=== PATIENT | female | born 1945 | race Caucasian/White ===

== ENCOUNTER 2018-02-25 05:40 | Inpatient (IN) | payer OTHER ==
--- NOTE | 2018-02-17 15:54 | ASMTCMCOM ---
CM Note CM Note Notes: At MD office request this CM talked to pt about d/c planning. Pt is scheduled for LESLIE 02/25/18 and has no friends/family support after surgery. Pt reports her one friend who will drive her to [facility] will leave the country the next day after pt surgery. Pt states she would like to avoid SNF and would be amenable to "more time" in the hospital in order to d/c home. Pt states she is not interested in an email providing SNF and HHC choice lists, states she would not know how to pick a SNF or HHC. Pt is encouraged to put any supports in place that come up and research HHC/SNFs. Pt informed CM will be here for d/c planning based on safety and what she qualifies for based on therapy evals. Date Signed: 02/17/2018 03:47 PM Electronically Signed By:MINA Meeks
[2018-02-25] MEDS ORDERED: FAMOTIDINE 20 MG TAB PO ONE (05:51)
[2018-02-25] MEDS ORDERED: DEXAMETHASONE 4 MG/ML VIAL IVP ONE (05:51)
[2018-02-25] MEDS ORDERED: ACETAMINOPHEN 325 MG TAB PO ONE (05:51)
[2018-02-25] MEDS ORDERED: ceFAZolin 2 GM/DEXTROSE 100 ML IV ONE (05:51)
[2018-02-25] MEDS ORDERED: LR 1,000 ML IV ONE (05:54)
[2018-02-25] MEDS ORDERED: ROPIVACAINE 0.2% 80 MG, EPINEPHrine 0.2 MG, KETOROLAC TROMETHAMINE 30 MG in SYRINGE 0 ML IU ONE (06:00)
[2018-02-25] MEDS ORDERED: TRANEXAMIC ACID 3,000 MG in NS (SYRINGE) 50 ML IRR ONE (06:00)
--- NOTE | 2018-02-25 06:24 | PDHPUP ---
History & Physical Update H&P update statement: This history and physical update is based on an assessment of the patient which was completed after admission or registration (within 24 hours), but prior to the surgery/procedure. H&P update: H&P reviewed & patient examined, no change in patient's condition since H&P completed
[2018-02-25] MEDS ORDERED: DEXAMETHASONE 4 MG/ML VIAL ONE (07:17)
[2018-02-25] MEDS ORDERED: METOCLOPRAMIDE 10 MG/2 ML VIAL ONE (07:17)
[2018-02-25] MEDS ORDERED: fentaNYL 100 MCG/2 ML INJ ONE (07:17)
[2018-02-25] MEDS ORDERED: ROCURONIUM 50 MG/5 ML VIAL ONE (07:17)
[2018-02-25] MEDS ORDERED: ONDANSETRON 4 MG/2 ML VIAL ONE (07:17)
[2018-02-25] MEDS ORDERED: PROPOFOL 200 MG/20 ML VIAL ONE (07:18)
[2018-02-25] MEDS ORDERED: morphINE PF 5 MG/10 ML INJ ONE (07:18)
[2018-02-25] MEDS ORDERED: MIDAZOLAM 2 MG/2 ML VIAL IVP ONE (07:21)
[2018-02-25] MEDS ORDERED: TRANEXAMIC ACID 3,000 MG/50 ML BAG IRR ONE (07:30)
[2018-02-25] MEDS ORDERED: PROPOFOL/EMULSION 500 MG/50 ML BOTTLE IV ONE ×2 (07:51→10:00)
--- NOTE | 2018-02-25 07:58 | PDANEPAE ---
ANE History of Present Illness l hip oa ANE Past Medical History - Cardiovascular History Hx Hypertension: No Hx Arrhythmias: No Hx Chest Pain: No Hx Coronary Artery / Peripheral Vascular Disease: No Hx CHF / Valvular Disease: No Hx Palpitations: No - Pulmonary History Hx COPD: No Hx Asthma/Reactive Airway Disease: Yes Hx Recent Upper Respiratory Infection: No Hx Oxygen in Use at Home: No Hx Sleep Apnea: No Sleep Apnea Screening Result - Last Documented: Negative Pulmonary History Comment: allergen induced asthma - Neurologic History Hx Cerebrovascular Accident: No Hx Seizures: No Hx Dementia: No - Endocrine History Hx Diabetes: No - Renal History Hx Renal Disorders: No - Liver History Hx Hepatic Disorders: No - Neurological & Psychiatric Hx Hx Neurological and Psychiatric Disorders: No - Cancer History Hx Cancer: No - Congenital Disorder History Hx Congenital Disorders: No - GI History Hx Gastrointestinal Disorders: Yes Gastrointestinal History Comment: reflux - Other Health History Other Health History: none - Chronic Pain History Chronic Pain: No - Surgical History Prior Surgeries: last surgery as a child ANE Review of Systems Review of Systems: - Exercise capacity METS (RN): 4 METS ANE Patient History - Allergies Allergies/Adverse Reactions: codeine Allergy (Verified 01/28/18 12:52) Dyspnea - Home Medications Home Medications: Advil 01/28/18 [Last Taken Unknown] - NPO status NPO Since - Liquids (Date): 02/24/18 NPO Since - Liquids (Time): 23:00 NPO Since - Solids (Date): 02/24/18 NPO Since - Solids (Time): 22:30 - Smoking Hx Smoking Status: Former smoker - Family Anes Hx Family Hx Anesthesia Complications: none ANE Labs/Vital Signs - Vital Signs Blood Pressure: 198/99 Heart Rate: 70 Respiratory Rate: 16 O2 Sat (%): 96 Height: 160.02 cm Weight: 83.915 kg ANE Physical Exam - Airway Neck exam: FROM Mallampati Score: Class 1 Mouth exam: normal dental/mouth exam - Pulmonary Pulmonary: no respiratory distress - Cardiovascular Cardiovascular: regular rate and rhythym - ASA Status ASA Status: II ANE Anesthesia Plan Anesthesia Plan: MAC, spinal
[2018-02-25] MEDS ORDERED: ONDANSETRON 4 MG/2 ML VIAL IVP PRN ×2 (08:00→09:29)
[2018-02-25] MEDS ORDERED: MEPERIDINE 25 MG/0.5 ML AMP IVP PRN (08:00)
[2018-02-25] MEDS ORDERED: PHENYLEPHRINE HCL 100 MCG/ML SYR IVP PRN (08:00)
[2018-02-25] MEDS ORDERED: ALBUTEROL 3 ML DEYVIAL IH PRN (08:00)
[2018-02-25] MEDS ORDERED: LR 500 ML IV PRN (08:00)
[2018-02-25] MEDS ORDERED: PROMETHAZINE HCL 25 MG/ML INJ IVP PRN ×2 (08:00→09:29)
[2018-02-25] MEDS ORDERED: LABETALOL HCL 5 MG/ML 20 ML MDV IVP PRN (08:00)
[2018-02-25] MEDS ORDERED: NALOXONE HCL 0.4 MG/ML INJ IVP PRN (08:00)
[2018-02-25] MEDS ORDERED: HYDROCODONE/APAP 5/325 TAB PO PRN (08:00)
[2018-02-25] MEDS ORDERED: fentaNYL 100 MCG/2 ML INJ IVP PRN (08:00)
[2018-02-25] MEDS ORDERED: HYDROmorphONE/DILAUDID 2 MG/ML INJ IVP PRN (08:00)
[2018-02-25] MEDS ORDERED: BUPIVACAINE/DEXTROSE 7.5MG/ML 2 ML SPINAL AMP SP ONE (08:35)
[2018-02-25] MEDS ORDERED: METOCLOPRAMIDE 10 MG/2 ML VIAL IVP PRN (09:29)
[2018-02-25] MEDS ORDERED: POLYETHYLENE GLYCOL 3350 17 GM PKT PO PRN (09:29)
[2018-02-25] MEDS ORDERED: diphenhydrAMINE 25 MG CAP PO PRN (09:29)
[2018-02-25] MEDS ORDERED: ONDANSETRON DISINTEGRATING 4 MG TAB PO PRN (09:29)
[2018-02-25] MEDS ORDERED: MAGNESIUM HYDROXIDE 30 ML UDCUP PO PRN (09:29)
[2018-02-25] MEDS ORDERED: PROMETHAZINE HCL 25 MG SUPPR PR PRN (09:29)
[2018-02-25] MEDS ORDERED: TEMAZEPAM 15 MG CAP PO PRN (09:29)
[2018-02-25] MEDS ORDERED: BISACODYL 10 MG SUPP PR PRN (09:29)
[2018-02-25] MEDS ORDERED: DIPHENOXYLATE/ATROPINE LOMOTIL 1 TAB PO PRN (09:29)
[2018-02-25] MEDS ORDERED: LACTULOSE 20 GM/30 ML UDCUP PO PRN (09:29)
[2018-02-25] MEDS ORDERED: CYCLOBENZAPRINE 10 MG TAB PO PRN (09:29)
--- NOTE | 2018-02-25 09:29 | POSTOPPROG ---
Post Op Note Date of Operation: 02/25/18 Surgeon: Shameka Moura Loss Prevention Guard: alfred EDEN Anesthesiologist: dr. arias Anesthesia: Spinal Pre-op Diagnosis: left hip OA Post-op Diagnosis: same Indication: left hip pain Procedure: L LESLIE ant approach Findings: severe hip OA Inf/Abcess present in the surg proc area at time of surgery?: No EBL: 100-500
[2018-02-25] MEDS ORDERED: LR 1,000 ML IV SCH (09:30)
--- NOTE | 2018-02-25 09:57 | POSTANESTH ---
Post Anesthetic Evaluation Cardiovascular Status: Normal, Stable Respiratory Status: Normal, Stable Level of Consciousness/Mental Status: Can Participate in Eval Pain Control: Adequate, Prn Tx Ordered Nausea/Vomiting Control: Adequate, Prn Tx Ordered Complications Possibly Related to Anesthesia: None Noted
[2018-02-25] MEDS: oxyCODONE IR 5 MG TAB PO PRN ×2 (11:19→15:57)
[2018-02-25] MEDS: ACETAMINOPHEN 325 MG TAB PO SCH ×2 (11:55→17:44)
[2018-02-25] MEDS: hydrALAZINE 10 MG TAB PO PRN ×2 (13:00→21:32)
--- NOTE | 2018-02-25 13:27 | PDMN ---
Medical Necessity Medical necessity: Pt meets INPT criteria per MD as of 02/25/18 and [facility] [place] S-560 Hip Arthroplasty ( Inpt Only surgery).
[2018-02-25] MEDS ORDERED: ALPRAZolam 0.5 MG TAB PO PRN (15:25)
[2018-02-25] MEDS ORDERED: ZOLPIDEM TARTRATE 5 MG TAB PO PRN (15:25)
[2018-02-25] MEDS: GABAPENTIN 300 MG CAP PO SCH ×2 (15:54→21:23)
[2018-02-25] MEDS: ceFAZolin 2 GM/DEXTROSE 100 ML IV SCH (15:58)
[2018-02-25] MEDS ORDERED: traMADol 50 MG TAB PO PRN (17:15)
[2018-02-25] MEDS: ASPIRIN 81 MG CHEWABLE TAB PO SCH (21:23)
[2018-02-25] MEDS: FAMOTIDINE 20 MG TAB PO SCH (21:24)
[2018-02-25] MEDS: SENNOSIDES/DOCUSATE SODIUM TAB PO SCH (21:25)
[2018-02-26] MEDS: ceFAZolin 2 GM/DEXTROSE 100 ML IV SCH (00:37)
[2018-02-26] MEDS: ACETAMINOPHEN 325 MG TAB PO SCH ×4 (00:38→17:37)
[2018-02-26] MEDS: hydrALAZINE 10 MG TAB PO PRN ×2 (05:47→20:44)
--- NOTE | 2018-02-26 08:31 | GOP ---
DATE OF OPERATION: SURGEON: Shae Moura MD SENIOR ADMINISTRATIVE ASSOCIATE: JANET Boyd ANESTHESIA: Spinal. PREOPERATIVE DIAGNOSIS: Left hip osteoarthritis. POSTOPERATIVE DIAGNOSIS: Left hip osteoarthritis. PROCEDURE PERFORMED: Left total hip arthroplasty. FINDINGS: ESTIMATED BLOOD LOSS: 200 cc. INDICATIONS: The patient has progressively worsening arthritis of the hip which has failed medical m anagement. The patient understands the treatment options including continued non-operative care and has selected surgical intervention. The patient has decided to undergo total hip arthroplasty via th e direct anterior approach, understanding the risks of the procedure including, but not limited to, n eurovascular injury, infection, persistent pain, component wear and loosening, deep venous thrombosis , pulmonary embolism, limb length inequality, hip instability (including dislocation), and intra-oper ative fractures. DESCRIPTION OF PROCEDURE: After proper identification of the patient including verification and megha ing the surgical site, the patient was brought to the operating room and placed in the supine positio n. All bony prominences were well padded. Anesthesia was induced without complication and intraveno us prophylactic antibiotics were administered prior to skin incision. The operative leg was placed in the Trumpf Arch table extension and the well leg in a Yellofin leg ho lder. The patient was prepped and draped in the usual sterile fashion. The C-arm was draped for int ra-operative fluoroscopy to check acetabular position, femoral component position including leg lengt h and femoral offset. Attention was then drawn to surgical exposure of the hip. An incision was made with a #10 Bard Jaida r blade starting 3 cm lateral and 3 cm distal to the anterior superior iliac spine measuring 8-10 cm and coursing distally toward the greater trochanter. The skin and subcutaneous tissues were divided sharply down to the fascia mana. The fascia mana was incised in line with the skin incision exposing the underlying tensor fascia mana muscle. The muscle was bluntly elevated from the fascia and the f irst extracapsular Cobra retractor was placed laterally at the junction of the superior femoral neck and greater trochanter. The lateral femoral circumflex vessels were identified, cauterized, and divi ded with the Aquamantys bipolar cautery. The deep investing fascia of the TFL was divided to allow p rohan mobilization of the muscle preventing damage during the retraction. The reflected head of the rectus femoris muscle was elevated off the anterior hip capsule and a medial Cobra retractor was plac ed just proximal to the lesser trochanter. The anterior capsulotomy was made sharply from the superolateral acetabulum to the saddle junction of the superior femoral neck and greater trochanter, then coursing inferomedial towards the lesser troc hanter. The retractors were then placed in the intracapsular position for femoral neck osteotomy. C orresponding to pre-operative templating, the osteotomy was made with the oscillating saw carefully p rotecting the greater trochanter and soft tissues. The femoral head was removed from the acetabulum with a corkscrew and confirmed to be severely arthritic with exposed bone, deformity and osteophytes. Similar findings were confirmed in the acetabulum. The Arch table extension was then placed in 40 degrees external rotation. Attention was then drawn to the acetabular preparation. After placement of the anterior and posterio r Cobra retractors outside the labrum and intracapsular, the circumferential labrum was removed sharp ly. The foveal contents were then removed and hemostasis obtained with cautery. The first reamer selected was sized using the removed femoral head. Reaming began with medialization and then commenced in 2 mm increments at 45 degrees of abduction and 15 degrees of anteversion using fluoroscopic navigation. Reaming ceased 1 mm less than the definitive acetabular component and galina esponded to the pre-operative templating. The final acetabular component was inserted using fluorosc opy to achieve proper orientation yielding excellent purchase and stability in the acetabulum. The f inal acetabular liner was then placed and its seating confirmed. Attention was then turned to the femur. The Arch table extension was placed in extension and adducti on, delivering the osteotomized femoral neck into the wound. A 2-pronged femoral elevator was placed at the calcar and another at the tip of the greater trochanter. The posterolateral capsule was rele ased with cautery allowing mobilization of the femur lateral and anterior for preparation. The exter nal rotators were visualized and preserved. A curette and rongeur were used to open the starting poi nt for broaching. Serial broaching started with the #0 broach and ended with the broach that exhibit ed excellent fit in the proximal femur. A change in pitch during mallet strikes was accompanied by t he inability to advance the broach any further. The trial reduction was performed and fluoroscopic n avigation was utilized to check limb length. Adjustments were made to equalize limb length according ly. After the final trials were accepted they were removed and the wound was copiously lavaged. The femo ral component was seated to the same depth as the final broach and the femoral head was impacted onto the clean trunnion. The hip was then reduced for the final time and once more fluoroscopy was used to check that limb length equality was achieved. The wound was irrigated and closed in layers, the fascia mana with 2-0 Quill, the subcutaneous tissue with 2-0 Quill, and the skin with Dermabond. Sterile dressings were applied. Final sharps and spon ge counts were accurate. The patient was then transferred to a hospital bed and brought to the [facility] hospital room in stable condition. IMPLANTS: Accolade II size 4, 127 acetabular component, 52 mm Trident, liner is a Trident X3 36 mm. Head is a Biolox Delta 36 mm +0. /[id number]/MODL
[2018-02-26] MEDS: FAMOTIDINE 20 MG TAB PO SCH ×2 (08:36→20:27)
[2018-02-26] MEDS: ASPIRIN 81 MG CHEWABLE TAB PO SCH ×2 (08:36→20:26)
[2018-02-26] MEDS: SENNOSIDES/DOCUSATE SODIUM TAB PO SCH ×2 (08:36→20:27)
[2018-02-26] MEDS ORDERED: VENLAFAXINE XR 150 MG CAP PO SCH (09:00)
[2018-02-26] MEDS ORDERED: VENLAFAXINE XR 75 MG CAP PO SCH (09:00)
--- NOTE | 2018-02-26 10:16 | SOAPPROG ---
SOAP Progress Note Assessment/Plan: Assessment: Patient is doing well POD 1 s/p L LESLIE pain is well controlled VTE ppx: recommend aspirin 81 mg BID for 4 weeks D/c planning: patient should continue to work with OT and PT for mobility and safety concerns. Appreciate case management assistance in coordinating postoperative care Plan: 02/26/18 10:14 Subjective: patient is doing ok, denies SOB, chest pain and n/V. has had some lightheadedness and difficulty working with PT. Objective: Vital Signs Temp Pulse Resp BP Pulse Ox 36.6 C 72 16 130/62 H 93 02/26/18 07:29 02/26/18 07:29 02/26/18 07:29 02/26/18 07:29 02/26/18 07:29 Laboratory Results 02/26/18 04:52 02/25/18 02/26/18 02/27/18 05:59 05:59 05:59 Intake Total 1760 Output Total 800 250 Balance 960 -250 LLE: incision dressing is clean and dry, NVI, +pf/df ICD10 Worksheet Patient Problems: Problems Problem Status Onset Primary localized osteoarthritis of left hip Acute
[2018-02-27] MEDS: ACETAMINOPHEN 325 MG TAB PO SCH ×4 (01:04→18:24)
[2018-02-27] MEDS: FAMOTIDINE 20 MG TAB PO SCH ×2 (09:15→20:17)
[2018-02-27] MEDS: ASPIRIN 81 MG CHEWABLE TAB PO SCH ×2 (09:15→20:17)
[2018-02-27] MEDS: SENNOSIDES/DOCUSATE SODIUM TAB PO SCH ×2 (09:17→20:17)
--- NOTE | 2018-02-27 11:50 | SOAPPROG ---
SOAP Progress Note Assessment/Plan: Assessment: Patient is doing well POD 2 s/p L LESLIE pain is well controlled VTE ppx: recommend aspirin 81 mg BID for 4 weeks D/c planning: patient should continue to work with OT and PT for mobility and safety concerns. Appreciate case management assistance in coordinating postoperative care. Patient lives alone and is not safe to discharge to home without assistance postoperatively. I don't think home health assistance will be sufficient and patient will need SNF placement. Plan: 02/26/18 10:14 02/27/18 11:48 Subjective: patient is doing well. resting comfortably Objective: Vital Signs Temp Pulse Resp BP Pulse Ox 36.7 C 75 15 131/72 H 93 02/27/18 07:22 02/27/18 07:22 02/27/18 07:22 02/27/18 08:20 02/27/18 07:22 Laboratory Results 02/27/18 04:35 02/26/18 02/27/18 02/28/18 05:59 05:59 05:59 Intake Total 1760 Output Total 800 1050 Balance 960 -1050 LLE; incision dressing is clean and dry, NVI, +pf/df ICD10 Worksheet Patient Problems: Problems Problem Status Onset Primary localized osteoarthritis of left hip Acute
--- NOTE | 2018-02-27 13:59 | ASMTCMCOM ---
CM Note CM Note Notes: Pt lives alone in a studio apt with no family in the area to help her. PT is recommending HC at this time, but surgeon feels this is not adequate and would like pt to discharge to a SNF on Wednesday, though notes do not reflect this at this time. Pt requested [facility] and referral was sent. D/C TBD: SNF v Home with [facility] Date Signed: 02/27/2018 01:58 PM Electronically Signed By:Yaritza Durbin LCSW
--- NOTE | 2018-02-27 14:10 | ASMTCMCOM ---
CM Note CM Note Notes: [facility]. Date Signed: 02/27/2018 02:10 PM Electronically Signed By:Yaritza Durbin LCSW
[2018-02-28] MEDS: ACETAMINOPHEN 325 MG TAB PO SCH ×3 (00:08→12:20)
[2018-02-28] MEDS: hydrALAZINE 10 MG TAB PO PRN ×2 (05:41→10:30)
[2018-02-28] MEDS: ASPIRIN 81 MG CHEWABLE TAB PO SCH (07:59)
[2018-02-28] MEDS: SENNOSIDES/DOCUSATE SODIUM TAB PO SCH (07:59)
[2018-02-28] MEDS: FAMOTIDINE 20 MG TAB PO SCH (08:00)
--- NOTE | 2018-02-28 13:01 | PDIAF ---
- Diagnosis Diagnosis: s/p LESLIE Code Status: Full Code - Medication Management Discharge Medications: Medications to Continue on Transfer Acetaminophen [Tylenol 325mg (*)] 650 mg PO Q6HRS tab 02/28/18 [Last Taken Unknown] Aspirin [Aspirin 81mg (*)] 81 mg PO BID tab.chew 02/28/18 [Last Taken Unknown] Famotidine [Pepcid 20 MG (*)] 20 mg PO BID tab 02/28/18 [Last Taken Unknown] Ondansetron Odt [Zofran Odt 4 mg (*)] 4 mg PO Q4HRS PRN tab 02/28/18 [Last Taken Unknown] Polyethylene Glycol 3350 [Miralax 17 gm (*)] 17 gm PO DAILY PRN pkt 02/28/18 [ Last Taken Unknown] Sennosides/Docusate Sodium [Senokot-S] 1 - 2 tab PO BID tab 02/28/18 [Last Taken Unknown] celeCOXIB [Celebrex (*)] 200 mg PO DAILY cap 02/28/18 [Last Taken Unknown] traMADol [Ultram 50 mg (*)] 50 - 100 mg PO Q6 PRN tab 02/28/18 [Last Taken Unknown] Discharge Medications: Refer to the Discharge Home Medication list for PRN reason. - Orders Diet Recommendation: no restrictions on diet Diet Texture: Regular Texture Diet Additional Instructions: Joint Protocol-Hip Replacement Follow up with Dr. High office as scheduled Patient has had HTN while in the hospital. She is not on any home medications. Recommend she be evaluated by PCP for HTN and while in SNF evaluated by physician that is caring for her. After surgery instructions: Take Aspirin 81mg by mouth twice daily for 4 weeks (helps to prevent blood clots ). Wear thigh high FLOR hose on both legs during the daytime for 2 weeks (helps to prevent blood clots and decrease swelling in the surgical leg). It is ok to remove FLOR hose at night time to give your legs a break. It is common for swelling and bruising to occur in the entire surgical leg even extending to the foot, if concerned call Dr. Paulino office [phone] Weight bearing as tolerated. Use a walker for 7-14 days. Do exercises in the book 2-3 times a day. Ice at least 3-5 times a day for 30 minutes each time, if not more often. If you have further questions that are not addressed here, please look at the information packet handed to you at the preop appointment. Most will be answered on the FAQs, after surgery instructions and incision care pages. You may also call Dr. High office with questions as well. *IF YOU HAVE A LIFE THREATENING EMERGENCY, CALL 911. FOR NON-LIFE THREATENING ISSUES, PLEASE CALL DR. HIGH OFFICE FIRST. A PHYSICIAN IS INCENDIARY POWDER MIXER 28/12. Incision/Dressing Care: You may shower tomorrow, you do not have to cover your incision dressing as it should be waterproof. Please do not immerse in water, but water running down in it a shower should be ok. Keep the incision (valdes) dressing clean and dry. If the incision dressing gets soiled or wet underneath, change dressing to the dressing given to you by the hospital. (valdes dressing will turn black if drainage occurs). Remove incision dressing (valdes one) two weeks after surgery. Leave steri strips alone. They will fall off on their own. Do not have anyone else remove the incision dressing prior to the stated recommendation (2 weeks after surgery). If there are incision concerns, contact Dr. Paulino office. (Elvira or Dr. Moura may remove earlier if concerns arise). If incision site (valdes dressing) has drainage, call Dr. Paulino office, [phone]. Elvira and Dr. Moura may ask you to come into the office for further evaluation - Follow Up Care Current Providers and Referrals: SHAUNNA AVNCE [Other] Elvira Moura PA [Physician [employer]] -
--- NOTE | 2018-02-28 13:02 | SOAPPROG ---
SOAP Progress Note Assessment/Plan: Assessment: Patient is doing well POD 3 s/p L LESLIE pain is well controlled VTE ppx: recommend aspirin 81 mg BID for 4 weeks D/c planning: patient should continue to work with OT and PT for mobility and safety concerns. Appreciate case management assistance in coordinating postoperative care. Patient lives alone and is not safe to discharge to home without assistance postoperatively. I don't think home health assistance will be sufficient and patient will need SNF placement. Plan: 02/26/18 10:14 02/27/18 11:48 02/28/18 13:01 Subjective: patient is doing well ready for d/c Objective: Vital Signs Temp Pulse Resp BP Pulse Ox 36.6 C 72 16 174/85 H 97 02/28/18 12:26 02/28/18 12:26 02/28/18 12:26 02/28/18 12:26 02/28/18 12:26 Laboratory Results 02/27/18 04:35 02/27/18 02/28/18 03/01/18 05:59 05:59 05:59 Intake Total 1250 Output Total 1050 500 100 Balance -1050 750 -100 incision dressing is clean and dry, NVI, +pf/df ICD10 Worksheet Patient Problems: Problems Problem Status Onset Chronic Disease Mgmt/Transitional Care Acute Primary localized osteoarthritis of left hip Acute
--- NOTE | 2018-02-28 14:15 | ASMTLACE ---
LACE Length of stay for Answers: 4-6 days current admission Acuity / Level of Answers: Yes Care: Did the patient have an inpatient admission? Comorbidities - select Answers: Other Notes: Asthma; GERD all that apply # of Emergency department Answers: 0 visits in the last 6 months Score: 8 Date Signed: 02/28/2018 02:14 PM Electronically Signed By:MINA Meeks
--- NOTE | 2018-02-28 14:15 | ASMTCMCOM ---
CM Note CM Note Notes: Pt medically stable for d/c to [facility]. Orders sent in [employer]. PARMINDER Bansal to call report. Sherry with [facility] scheduled wc transport for 15:30. Date Signed: 02/28/2018 02:15 PM Electronically Signed By:MINA Meeks
[2018-02-28 15:47] VITALS: BP 170/81
--- NOTE | 2018-03-01 10:58 | ASDISCHSUM ---
Discharge Information Plan Status:SNF Medically Cleared to Leave: Discharge Date:02/28/2018 04:31 PM D/C Disposition:[facility]ison Facility ADT D/C Disposition:Prison Facility Projected Discharge Date:02/28/2018 11:00 AM Transportation at D/C:Wheelchair Van Discharge Delay Reason: Follow-Up Date:02/28/2018 11:00 AM Discharge Slot: Final Diagnosis: Placement Information Referral Type:*Long-Term/SNF Referral ID:[id number] Provider Name:[facility] Address 1:[address] Address 2: City:[place] Selection Factors: State:[place] Patient Contact Information Contact Name:JA Relationship:Curry Address: Work Phone: [place] [facility] [place] Phone: [facility] Code: Email: Financial Information Financial Class:Medicare Primary Plan Desc:MEDICARE INPATIENT Primary Plan Number:[id number] Secondary Plan Desc:[employer]URANCE Secondary Plan Number:[id number] Assessment Information [facility] CM Progress Note CM Note CM Note Notes: At MD office request this CM talked to pt about d/c planning. Pt is scheduled for LESLIE 02/25/18 and has no friends/family support after surgery. Pt reports her one friend who will drive her to [facility] will leave the country the next day after pt surgery. Pt states she would like to avoid SNF and would be amenable to "more time" in the hospital in order to d/c home. Pt states she is not interested in an email providing SNF and HHC choice lists, states she would not know how to pick a SNF or HHC. Pt is encouraged to put any supports in place that come up and research HHC/SNFs. Pt informed CM will be here for d/c planning based on safety and what she qualifies for based on therapy evals. Date Signed: 02/17/2018 03:47 PM Electronically Signed By:MINA Meeks LACE LACE Length of stay for Answers: 4-6 days current admission Acuity / Level of Answers: Yes Care: Did the patient have an inpatient admission? Comorbidities - select Answers: Other Notes: Asthma; GERD all that apply # of Emergency department Answers: 0 visits in the last 6 months Score: 8 Date Signed: 02/28/2018 02:14 PM Electronically Signed By:MINA Meeks [facility] JERRY Progress Note CM Note CM Note Notes: Pt lives alone in a studio apt with no family in the area to help her. PT is recommending HC at this time, but surgeon feels this is not adequate and would like pt to discharge to a SNF on Wednesday, though notes do not reflect this at this time. Pt requested [facility] and referral was sent. D/C TBD: SNF v Home with [facility] Date Signed: 02/27/2018 01:58 PM Electronically Signed By:Yaritza Durbin LCSW [facility] CM Progress Note CM Note CM Note Notes: [facility] willing to accept patient. Date Signed: 02/27/2018 02:10 PM Electronically Signed By:Yaritza Durbin LCSW [facility] CM Progress Note CM Note CM Note Notes: Pt medically stable for d/c to [facility] SNF. Orders sent in [employer]. PARMINDER Bansal to call report. Sherry with [facility] scheduled wc transport for 15:30. Date Signed: 02/28/2018 02:15 PM Electronically Signed By:MINA Meeks Intervention Information Intervention Type:*IM-Signed Date of Service:02/28/2018 02:30 PM Patient Type:Inpatient Staff Member:Ciara Black Hours: Discipline: Severity: Comment:
== END 2018-02-28 16:31 | DRG 470 ==
LOC: F3N 05:40
PROVIDERS: ADMIT Orthopaedic Surgery; ATTEND Orthopaedic Surgery
PROC: 0SRB04Z Replacement of Left Hip Joint with Ceramic on Polyethylene Synthetic Substitute, Open Approach (ICD-10-PCS; principal; 2018-02-25 08:00)
DX: M16.12 Unilateral primary osteoarthritis, left hip (principal); J45.909 Unspecified asthma, uncomplicated; K21.9 Gastro-esophageal reflux disease without esophagitis; Z87.891 Personal history of nicotine dependence
CPT/HCPCS: 97116-GP; 97161-GP; 97165-GO; 97530-GP; 97535-GO; G8978-GP-CK; G8979-GP-CJ; G8980-GP-CI; G8987-GO-CJ; G8988-GO-CI; J0171; J0690; J1100; J1885; J2250; J2274; J2405; J2704; J2765; J2795; J3010